=== PATIENT | female | born 1995 | race Caucasian/White ===

== ENCOUNTER → 2017-09-24 15:00 | Outpatient (CLI) | payer MEDICAID ==
[~2017-09-24 15:00] MED LIST: EZFE 200200 MG PO
[2017-11-11 07:31] VITALS: BMI 31.8
== END | disposition home or self-care (01) ==
LOC: D.LDO 15:00
DX: O16.3 Unspecified maternal hypertension, third trimester (principal); Z3A.30 30 weeks gestation of pregnancy

== ENCOUNTER → 2017-09-27 08:43 | Outpatient (CLI) | payer MEDICAID ==
[2017-11-11 07:31] VITALS: BMI 31.8
== END | disposition home or self-care (01) ==
LOC: D.LDO 08:43
DX: O16.3 Unspecified maternal hypertension, third trimester (principal); Z3A.30 30 weeks gestation of pregnancy

== ENCOUNTER → 2017-09-30 12:03 | Outpatient (CLI) | payer MEDICAID ==
[2017-11-11 07:31] VITALS: BMI 31.8
== END | disposition home or self-care (01) ==
LOC: D.LDO 12:03
DX: O16.3 Unspecified maternal hypertension, third trimester (principal); Z3A.31 31 weeks gestation of pregnancy

== ENCOUNTER → 2017-10-03 13:11 | Outpatient (CLI) | payer MEDICAID ==
[2017-10-03 14:42] LABS: HEMATOCRIT 30.2 % (36.0-48.0); HEMOGLOBIN 9.4 g/dL (12-16); MCH 22.7 pg (26.0-34.0); MCHC 31.1 g/dL (31.0-37.0); MCV 72.9 fL (80.0-100.0); MEAN PLATELET VOLUME 10.7 fL (7.4-10.4); RBC 4.14 10x6/uL (4.00-5.40); RDW 14.9 % (11.5-14.5); WBC 14.4 10x3/uL (4.8-10.8)
[2017-10-03 14:55] LABS: CALC OSMOLALITY 270 mosm/kg (275-300); CALCIUM 8.8 mg/dL (8.5-10.1); CARBON DIOXIDE 19.9 mmol/L (21.0-32.0); CHLORIDE - SERUM 103 mmol/L (98-107); CREATININE - SERUM 0.4 mg/dL (0.6-1.3); GLUCOSE 93 mg/dL (74-106); POTASSIUM - SERUM 3.2 mmol/L (3.5-5.1); SODIUM 137 mmol/L (136-145); UREA NITROGEN 3 mg/dL (7-18); URIC ACID 2.6 mg/dL (2.6-7.2); eGFR NON AFRICAN AMERICAN > 90 mL/min (90-120)
[2017-11-11 07:31] VITALS: BMI 31.8
== END | disposition home or self-care (01) ==
LOC: D.LDO 13:11
PROVIDERS: Obstetrics & Gynecology
DX: O16.3 Unspecified maternal hypertension, third trimester (principal); Z3A.31 31 weeks gestation of pregnancy

== ENCOUNTER → 2017-10-08 13:25 | Outpatient (CLI) | payer MEDICAID ==
[2017-11-11 07:31] VITALS: BMI 31.8
== END | disposition home or self-care (01) ==
LOC: D.LDO 13:25
DX: O16.3 Unspecified maternal hypertension, third trimester (principal); Z3A.32 32 weeks gestation of pregnancy

== ENCOUNTER → 2017-10-11 10:23 | Outpatient (CLI) | payer MEDICAID ==
[2017-11-11 07:31] VITALS: BMI 31.8
== END | disposition home or self-care (01) ==
LOC: D.LDO 10:23
DX: O16.3 Unspecified maternal hypertension, third trimester (principal); Z3A.32 32 weeks gestation of pregnancy

== ENCOUNTER → 2017-10-16 14:34 | Outpatient (CLI) | payer MEDICAID ==
[2017-10-16 15:41] LABS: APPEARANCE CLEAR (CLEAR); BILIRUBIN NEGATIVE (NEGATIVE); COLOR YELLOW (YELLOW); GLUCOSE NEGATIVE (NEGATIVE); KETONE NEGATIVE (NEGATIVE); NITRITE NEGATIVE (NEGATIVE); PROTEIN NEGATIVE (NEGATIVE); UROBILINOGEN NORMAL (NORMAL)
[2017-10-16 15:42] LABS: EPITHELIAL CELLS 0-5 /hpf (0-5); RED CELLS - URINE OCC /hpf (0-5); WHITE CELLS - URINE 0-5 /hpf (0-5)
[2017-10-16 15:43] LABS: BASOPHILS 0.3 % (0-2); EOSINOPHILS 0.9 % (0-7); HEMATOCRIT 29.2 % (36.0-48.0); HEMOGLOBIN 8.7 g/dL (12-16); IMMATURE GRANULOCYTES 0.3 % (0-5); LYMPHOCYTES 16.9 % (15-50); MCH 21.4 pg (26.0-34.0); MCHC 29.8 g/dL (31.0-37.0); MCV 71.7 fL (80.0-100.0); MEAN PLATELET VOLUME 11.2 fL (7.4-10.4); MONOCYTES 9.1 % (2-11); NEUTROPHILS 72.5 % (40-80); PLATELET COUNT 225 10x3/uL (130-400); RBC 4.07 10x6/uL (4.00-5.40); RDW 15.3 % (11.5-14.5); WBC 11.4 10x3/uL (4.8-10.8)
[2017-10-16 15:43] LABS: BACTERIA MANY /hpf (NONE SEEN)
[2017-10-16 16:15] LABS: ALBUMIN 2.2 g/dL (3.4-5.0); ALKALINE PHOSPHATASE 160 U/L (46-116); ALT (SGPT) 10 U/L (10-68); BILIRUBIN - TOTAL 0.25 mg/dL (0.2-1.3); CALC OSMOLALITY 268 mosm/kg (275-300); CALCIUM 8.8 mg/dL (8.5-10.1); CHLORIDE - SERUM 104 mmol/L (98-107); CREATININE - SERUM 0.5 mg/dL (0.6-1.3); GLUCOSE 85 mg/dL (74-106); POTASSIUM - SERUM 3.9 mmol/L (3.5-5.1); PROTEIN - SERUM 6.2 g/dL (6.4-8.2); SODIUM 136 mmol/L (136-145); UREA NITROGEN 8 mg/dL (7-18); eGFR NON AFRICAN AMERICAN > 90 mL/min (90-120)
[2017-10-16 16:17] LABS: BILIRUBIN - DIRECT 0.13 mg/dL (0.00-0.30); BILIRUBIN - INDIRECT 0.12 mg/dL (0.00-1.00); URIC ACID 3.4 mg/dL (2.6-7.2)
[2017-11-11 07:31] VITALS: BMI 31.8
== END | disposition home or self-care (01) ==
LOC: D.LDO 14:34
PROVIDERS: Obstetrics & Gynecology
DX: O16.3 Unspecified maternal hypertension, third trimester (principal); Z3A.33 33 weeks gestation of pregnancy

== ENCOUNTER → 2017-10-19 16:25 | Outpatient (CLI) | payer MEDICAID ==
[2017-11-11 07:31] VITALS: BMI 31.8
== END | disposition home or self-care (01) ==
LOC: D.LDO 16:25
DX: O16.3 Unspecified maternal hypertension, third trimester (principal); Z3A.34 34 weeks gestation of pregnancy

== ENCOUNTER → 2017-10-22 14:29 | Outpatient (CLI) | payer MEDICAID ==
[2017-11-11 07:31] VITALS: BMI 31.8
== END | disposition home or self-care (01) ==
LOC: D.LDO 14:29
DX: O16.3 Unspecified maternal hypertension, third trimester (principal); Z3A.34 34 weeks gestation of pregnancy

== ENCOUNTER → 2017-10-25 13:47 | Outpatient (CLI) | payer MEDICAID ==
[2017-10-25 14:55] LABS: BASOPHILS 0.2 % (0-2); EOSINOPHILS 0.9 % (0-7); HEMATOCRIT 28.8 % (36.0-48.0); HEMOGLOBIN 8.8 g/dL (12-16); IMMATURE GRANULOCYTES 0.4 % (0-5); LYMPHOCYTES 14.6 % (15-50); MCH 21.4 pg (26.0-34.0); MCHC 30.6 g/dL (31.0-37.0); MCV 70.1 fL (80.0-100.0); MONOCYTES 11.5 % (2-11); NEUTROPHILS 72.4 % (40-80); PLATELET COUNT 255 10x3/uL (130-400); RBC 4.11 10x6/uL (4.00-5.40); RDW 15.6 % (11.5-14.5); WBC 12.3 10x3/uL (4.8-10.8)
[2017-10-25 15:11] LABS: ALBUMIN 2.1 g/dL (3.4-5.0); ALKALINE PHOSPHATASE 161 U/L (46-116); ALT (SGPT) 9 U/L (10-68); BILIRUBIN - TOTAL 0.21 mg/dL (0.2-1.3); CALC OSMOLALITY 267 mosm/kg (275-300); CALCIUM 8.5 mg/dL (8.5-10.1); CARBON DIOXIDE 19.6 mmol/L (21.0-32.0); CHLORIDE - SERUM 104 mmol/L (98-107); CREATININE - SERUM 0.4 mg/dL (0.6-1.3); GLUCOSE 97 mg/dL (74-106); POTASSIUM - SERUM 3.3 mmol/L (3.5-5.1); PROTEIN - SERUM 6.7 g/dL (6.4-8.2); SODIUM 135 mmol/L (136-145); UREA NITROGEN 6 mg/dL (7-18); eGFR NON AFRICAN AMERICAN > 90 mL/min (90-120)
[2017-11-11 07:31] VITALS: BMI 31.8
== END | disposition home or self-care (01) ==
LOC: D.LDO 13:47
PROVIDERS: Obstetrics & Gynecology
DX: O16.3 Unspecified maternal hypertension, third trimester (principal); Z3A.34 34 weeks gestation of pregnancy

== ENCOUNTER → 2017-10-29 13:37 | Outpatient (CLI) | payer MEDICAID ==
[2017-11-11 07:31] VITALS: BMI 31.8
== END | disposition home or self-care (01) ==
LOC: D.LDO 13:37
DX: O16.3 Unspecified maternal hypertension, third trimester (principal); Z3A.35 35 weeks gestation of pregnancy

== ENCOUNTER → 2017-11-01 13:10 | Outpatient (CLI) | payer MEDICAID ==
[2017-11-01 13:43] LABS: BASOPHILS 0.2 % (0-2); EOSINOPHILS 1.3 % (0-7); HEMATOCRIT 30.6 % (36.0-48.0); HEMOGLOBIN 9.5 g/dL (12-16); IMMATURE GRANULOCYTES 0.3 % (0-5); LYMPHOCYTES 16.6 % (15-50); MCH 21.3 pg (26.0-34.0); MCV 68.8 fL (80.0-100.0); MEAN PLATELET VOLUME 10.7 fL (7.4-10.4); MONOCYTES 8.6 % (2-11); PLATELET COUNT 238 10x3/uL (130-400); RBC 4.45 10x6/uL (4.00-5.40); RDW 15.8 % (11.5-14.5); WBC 11.8 10x3/uL (4.8-10.8)
[2017-11-01 14:04] LABS: ALBUMIN 2.4 g/dL (3.4-5.0); ALKALINE PHOSPHATASE 196 U/L (46-116); ALT (SGPT) 14 U/L (10-68); BILIRUBIN - DIRECT 0.07 mg/dL (0.00-0.30); BILIRUBIN - INDIRECT 0.16 mg/dL (0.00-1.00); BILIRUBIN - TOTAL 0.23 mg/dL (0.2-1.3); CALC OSMOLALITY 271 mosm/kg (275-300); CALCIUM 8.8 mg/dL (8.5-10.1); CARBON DIOXIDE 20.2 mmol/L (21.0-32.0); CHLORIDE - SERUM 104 mmol/L (98-107); CREATININE - SERUM 0.4 mg/dL (0.6-1.3); GLUCOSE 119 mg/dL (74-106); PROTEIN - SERUM 6.8 g/dL (6.4-8.2); SODIUM 137 mmol/L (136-145); UREA NITROGEN 5 mg/dL (7-18); URIC ACID 3.2 mg/dL (2.6-7.2); eGFR NON AFRICAN AMERICAN > 90 mL/min (90-120)
[2017-11-01 14:37] LABS: APPEARANCE CLOUDY (CLEAR); BACTERIA MANY /hpf (NONE SEEN); BILIRUBIN NEGATIVE (NEGATIVE); COLOR YELLOW (YELLOW); GLUCOSE NEGATIVE (NEGATIVE); KETONE NEGATIVE (NEGATIVE); MUCUS >1+ /lpf (NONE SEEN); NITRITE NEGATIVE (NEGATIVE); PROTEIN NEGATIVE (NEGATIVE); RED CELLS - URINE RARE /hpf (0-5); UROBILINOGEN NORMAL (NORMAL)
[2017-11-11 07:31] VITALS: BMI 31.8
== END | disposition home or self-care (01) ==
LOC: D.LDO 13:10
PROVIDERS: Obstetrics & Gynecology
DX: O16.3 Unspecified maternal hypertension, third trimester (principal); Z3A.35 35 weeks gestation of pregnancy

== ENCOUNTER → 2017-11-05 14:10 | Outpatient (CLI) | payer MEDICAID ==
[2017-11-11 07:31] VITALS: BMI 31.8
== END | disposition home or self-care (01) ==
LOC: D.LDO 14:10
DX: O16.3 Unspecified maternal hypertension, third trimester (principal); Z3A.36 36 weeks gestation of pregnancy

== ENCOUNTER 2017-11-11 04:00 | Inpatient (IN) | payer MEDICAID ==
[~2017-11-11] VITALS: Ht 162.6 cm; Wt 83.9 kg
--- NOTE | ~2017-11-11 | OP ---
PATIENT NAME: CHRISTINA MATIAS MEDICAL RECORD: [id number] :89 LOCATION:[id number] ADMISSION DATE:11/11/17 SURGEON: MAREK HIRSCH MD DATE OF OPERATION: 11/11/2017 PREOPERATIVE DIAGNOSES: 1. Chronic hypertension. 2. Failed induction of labor. POSTOPERATIVE DIAGNOSES: 1. Chronic hypertension. 2. Failed induction of labor. PROCEDURE: A primary low transverse section. SURGEON: Marek Hirsch MD ESTIMATED BLOOD LOSS: 1000 cc. INTRAVENOUS FLUIDS: Per anesthesia record. ANESTHESIA: Regional. SPECIMENS: Placenta and cord for gases. FINDINGS: 1. Viable , Apgars 9 at 1 and 9 at 5. 2. Placenta delivered manually intact, 3-vessel cord noted. Normal appearing adnexa bilaterally. PROCEDURE: The patient was taken to the operating room where regional anesthesia was achieved without difficulty. The patient was then prepped and draped in normal sterile fashion in the dorsal supine position. SCDs were on and functioning appropriately. Stewart catheter had been placed and was draining freely. Following prep and drape, a Pfannenstiel skin incision was made, extended downward to the underlying subcutaneous fat to the level of the fascia, this was then excised in the midline and then bilaterally using the Andino scissors. Superior and inferior aspects of the fascial incision were then grasped with Alan clamps times 2, tented upward, and sharply dissected from the underlying rectus muscle using the Bovie cautery and Andino scissors. Rectus muscles were then bluntly in the midline. Peritoneum was entered sharply at the superior aspect of the incision using the Metzenbaum scissors. Further dissection of the peritoneum was performed using the Metzenbaum scissors and a bladder blade was then placed into the pelvis. A bladder flap was created by excising the anterior leaf of the broad ligament across the lower uterine segment using the Metzenbaum scissors. A low transverse incision was then made on the uterus with a scalpel and extended superiorly and inferiorly using the Pelosi method. The vertex was then delivered atraumatically followed by the body. The infant was bulb suctioned upon delivery. Cord was clamped times 2, cut, and the was handed to the awaiting nursery team. Cord was then obtained for gases. The placenta was removed manually and intact. The uterus was exteriorized, cleared of all clots and debris and vigorously massaged until good hemostasis was noted. The uterine incision was repaired with 0 Vicryl in a running locked fashion times 2 with good hemostasis noted. Posterior cul-de-sac was then thoroughly irrigated and uterus replaced into the pelvis. Anterior OPERATIVE REPORT [id number] CHRISTINA MATIAS cul-de-sac was then thoroughly irrigated and the uterine incision was found to be hemostatic. Counts were correct times 2 for needles, sponges, and instruments. The fascia was then repaired with 0 loop PDS and the skin repaired with johana. The patient tolerated procedure well, transferred to postanesthesia recovery stable without incident. TRANSINT:[id number] Voice Confirmation ID: [id number] DOCUMENT ID: [id number] MAREK HIRSCH MD at 1304 CC: [id number] DICTATION DATE: 01/11/18614 STEEL ERECTING PUSHER: 01/11/18 0641 DIS IN 11/14/17 [facility] [address] [place] [address]
--- NOTE | ~2017-11-11 | DS ---
PATIENT:CHRISTINA MATIAS :89 MEDICAL RECORD: [id number] DISCHARGE SUMMARY ADMISSION DATE: 11/11/17 DISCHARGE DATE: 11/14/17 The patient was admitted on 11/11/2017. HISTORY OF PRESENT ILLNESS: A 22-year-old at 37 weeks 3 days, admitted for induction of labor due to maternal hypertension. The patient was noted to be O positive, group B strep positive, rubella immune. The patient was noted to be positive for group B strep. PAST MEDICAL HISTORY: Significant for chronic hypertension and group B strep carrier. PAST SURGICAL HISTORY: The patient reported no surgical history. ALLERGIES: No allergies to any medications. MEDICATIONS: The patient reported medications included vitamins and iron. FAMILY HISTORY: The patient reported no significant family history. SOCIAL HISTORY: The patient reported her social history negative times 3. PHYSICAL EXAMINATION: VITAL SIGNS: On initial assessment, vital signs were found to be stable. Blood pressure was 141/91. The patient was afebrile. LUNGS: Clear to auscultation. CARDIOVASCULAR: Regular rate and rhythm. PELVIC: Uterus was appropriately sized and nontender. EXTREMITIES: Lower extremities were free of swelling, erythema, or Homans sign. LABORATORY DATA: Admit hemoglobin was found to be 9.0 with a platelet count of 221. ASSESSMENT AND PLAN: At that time; 1. Term intrauterine at 37 weeks. 2. Chronic hypertension. 3. Positive GBS. 4. Anemia. Plan at that time for Pitocin induction of labor. HOSPITAL COURSE: The patient was started on antibiotics for group B strep. At that time, wellbeing with a reassuring category 1 tracing. The patient was on Pitocin for 14 hours without cervical change. Options were discussed with the patient, and the patient opted to proceed with . Risks and benefits were explained at that time. Blood pressures remained elevated; however, not in the severe category. At that time, fetus with reassuring category 1 tracing. Operative report is as dictated. The patient did well overnight on postop day #0, tolerating clear liquids. 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 Stewart catheter was draining freely, and urine output was found to be adequate. Blood pressures increased overnight, and the patient was given labetalol IV. SCDs were on and functioning all throughout the night. On DISCHARGE SUMMARY REPORT [id number] CHRISTINA MATIAS the morning of postop day #1, blood pressures were improving. The patient at that time upon evaluation was currently normotensive. Incision was clean, dry, and intact. The uterus was infraumbilical and appropriately tender. The patient was transfused 1 unit of packed red cells. Postop hemoglobin was consistent with intraoperative blood loss. The patient was advanced to general diet, p.o. pain meds. Stewart catheter was discontinued, and ambulation was begun. The patient continued to do well overnight on postop day #1. On the morning of postop day #2, the patient continued to do well, vital signs are stable, the patient was afebrile. Uterus, infraumbilical and appropriately tender. Incision was clean, dry, and intact. Tolerating general diet, p.o. pain meds and ambulating well, voiding freely. The patient was discharged home on postop day #2 with instructions to follow up the next week for blood pressure check. TRANSINT:[id number] Voice Confirmation ID: [id number] DOCUMENT ID: [id number] HIMANSHU GARCIA MD at 1304 CC: [id number] DICTATION DATE: 01/11/18 0619 SALES AND MARKETING EXECUTIVE: 01/11/18 0738 DIS IN 11/14/17 [facility] [id number] [place] [address]
[2017-11-11 07:31] VITALS: BP 141/91; Ht 162.6 cm; Wt 83.9 kg
[2017-11-11] MEDS ORDERED: EZFE 200200 MG PO (07:31)
[2017-11-11 07:51] LABS: HEMATOCRIT 29.4 % (36.0-48.0); MCH 20.9 pg (26.0-34.0); MCHC 30.6 g/dL (31.0-37.0); MCV 68.4 fL (80.0-100.0); PLATELET COUNT 221 10x3/uL (130-400); RDW 16.7 % (11.5-14.5); WBC 10.6 10x3/uL (4.8-10.8)
[2017-11-11 11:32] LABS: APPEARANCE CLOUDY (CLEAR); COLOR YELLOW (YELLOW); SPECIFIC GRAVITY 1.015 (1.005-1.020)
[2017-11-11 11:33] LABS: BILIRUBIN NEGATIVE (NEGATIVE); GLUCOSE NEGATIVE (NEGATIVE); KETONE SMALL mg/dL (NEGATIVE); NITRITE NEGATIVE (NEGATIVE); PROTEIN NEGATIVE (NEGATIVE); UROBILINOGEN NORMAL (NORMAL); WHITE CELLS - URINE OCC /hpf (0-5)
[2017-11-11 11:34] LABS: BACTERIA MODERATE /hpf (NONE SEEN); EPITHELIAL CELLS 0-5 /hpf (0-5); MUCUS <1+ /lpf (NONE SEEN)
[2017-11-12] VITALS (8 sets, daily range): BP systolic 126–150; BP diastolic 67–101
[2017-11-13] VITALS (9 sets, daily range): BP systolic 128–140; BP diastolic 66–93
[2017-11-13 06:14] LABS: RAPID PLASMA REAGIN Non Reactive (Non Reactive)
[2017-11-13 06:27] LABS: BASOPHILS 0.3 % (0-2); EOSINOPHILS 0.7 % (0-7); HEMOGLOBIN 7.6 g/dL (12-16); IMMATURE GRANULOCYTES 0.3 % (0-5); LYMPHOCYTES 19.7 % (15-50); MCH 21.4 pg (26.0-34.0); MCHC 30.4 g/dL (31.0-37.0); MONOCYTES 9.2 % (2-11); NEUTROPHILS 69.8 % (40-80); RBC 3.55 10x6/uL (4.00-5.40); RDW 18.2 % (11.5-14.5); WBC 11.5 10x3/uL (4.8-10.8)
[2017-11-13 06:35] LABS: MCV 70.4 fL (80.0-100.0); PLATELET COUNT 168 10x3/uL (130-400)
[2017-11-14 01:55] VITALS: BP 139/83
[2017-11-14 06:07] VITALS: BP 138/76
[2017-11-14 09:03] VITALS: BP 135/79
== END 2017-11-14 15:00 | disposition home or self-care (01) | DRG 766 ==
LOC: D.LD 04:00
PROVIDERS: Obstetrics & Gynecology
PROC: 3E033VJ Introduction of Other Hormone into Peripheral Vein, Percutaneous Approach (ICD-10-PCS; 2017-11-12)
PROC: 10D00Z1 Extraction of Products of Conception, Low, Open Approach (ICD-10-PCS; principal; 2017-11-12 12:00)
DX: O99.824 Streptococcus B carrier state complicating childbirth (principal); Z3A.37 37 weeks gestation of pregnancy; Z37.0 Single live birth; O99.214 Obesity complicating childbirth; O10.92 Unspecified pre-existing hypertension complicating childbirth; O99.02 Anemia complicating childbirth; O61.0 Failed medical induction of labor